=== PATIENT | male | born 1995 | race Caucasian/White ===

== ENCOUNTER 2020-09-20 08:04 | Emergency (ER) | payer OTHER ==
[2020-09-20 08:08] VITALS: BP 144/79; PULSE 74; RESP 18; TEMP 97.7
--- NOTE | 2020-09-20 08:18 | ED ---
ENT HPI - General Chief complaint: ENT Stated complaint: Swollen throat Time Seen by Provider: 09/20/20 08:09 Source: patient, RN notes reviewed Mode of arrival: ambulatory Limitations: no limitations - History of Present Illness Initial comments: This a 25-year-old male presents emergency department last sore throat. Patient states started late last night into this morning. Patient states it hurts more and left side. States it feels swollen no difficulty swallowing or breathing. Patient states just painful. No reported fever no bodyaches or cold like symptoms otherwise. - Related Data Previous Rx's Medication Instructions Recorded Amoxicillin 500 mg PO Q8H #30 capsule 09/20/20 Allergies Allergy/AdvReac Type Severity Reaction Status Date / Time Sulfa (Sulfonamide AdvReac mother is Verified 09/20/20 08:08 Antibiotics) allergic - states that he will be Review of Systems ROS Statement: Those systems with pertinent positive or pertinent negative responses have been documented in the HPI. ROS Other: All systems not noted in ROS Statement are negative. Past Medical History Past Medical History: No Reported History History of Any Multi-Drug Resistant Organisms: None Reported Additional Past Surgical History / Comment(s): thumb Past Psychological History: No Psychological Hx Reported Smoking Status: Never smoker Past Alcohol Use History: None Reported Past Drug Use History: Marijuana General Exam Limitations: no limitations General appearance: alert, in no apparent distress Head exam: Present: atraumatic, normocephalic, normal inspection Eye exam: Present: normal appearance, PERRL, EOMI. Absent: scleral icterus, conjunctival injection, periorbital swelling ENT exam: Present: mucous membranes moist, TM's normal bilaterally, normal external ear exam. Absent: normal oropharynx (Erythematous posterior pharynx, exudates, small tonsils to the left) Neck exam: Present: normal inspection, tenderness, lymphadenopathy. Absent: meningismus Respiratory exam: Present: normal lung sounds bilaterally. Absent: respiratory distress, wheezes, rales, rhonchi, stridor Cardiovascular Exam: Present: regular rate, normal rhythm, normal heart sounds. Absent: systolic murmur, diastolic murmur, rubs, gallop, clicks Course Vital Signs 09/20/20 08:06 Temperature 97.7 F Pulse Rate 74 Respiratory 18 Rate Blood Pressure 144/79 O2 Sat by Pulse 100 Oximetry Medical Decision Making - Medical Decision Making Patient has clinical strep infection was tonsillar stone, tonsillitis. Patient will be started on amoxicillin return parameters were discussed. Disposition Clinical Impression: Acute pharyngitis, Acute tonsillitis, Tonsil stone Disposition: HOME SELF-CARE Condition: Stable Instructions (If sedation given, give patient instructions): Pharyngitis (ED) Additional Instructions: Please return to the Emergency Department if symptoms worsen or any other concerns. Prescriptions: Amoxicillin 500 mg PO Q8H #30 capsule Is patient prescribed a controlled substance at d/c from ED?: No Referrals: None,Stated [Primary Care Provider] - 1-2 days Time of Disposition: 08:17
== END 2020-09-20 08:35 | disposition home or self-care (01) ==
LOC: EC 08:04
DX: J03.90 Acute tonsillitis, unspecified (principal); J35.8 Other chronic diseases of tonsils and adenoids; F12.90 Cannabis use, unspecified, uncomplicated
CPT/HCPCS: 99282